=== PATIENT | female | born 1965 | race Caucasian/White ===

== ENCOUNTER 2021-02-16 07:16 | Day surgery (SDC) | payer OTHER, SELFPAY ==
[2021-01-26 13:31] VITALS: BMI 36.1
--- NOTE | 2021-02-15 13:25 | WPDANESEPPF ---
Anes - Initial Pre Proc Eval Procedure: Operation Date: 02/16/21 09:00 Proposed Procedures p Bilateral Breast Implant Exchange - Dillon Simons MD Date/Time: 02/15/21 13:25 Surgeon: Dillon Simons MD Pre Op Diagnosis: Right Breast Implant Rupture Patient Data Age: 55 Gender: F Height: 1.7 m Weight: 104.5 kg Allergies Allergy/AdvReac Type Severity Reaction Status Date / Time No Known Allergies Allergy Verified 02/16/21 07:28 Home Medications Medication Instructions Recorded Confirmed Type lisinopril 20 1 tablet PO DAILY 01/25/21 02/16/21 History mg-hydrochlorothiazide 25 mg tablet meloxicam 7.5 mg tablet 7.5 mg PO DAILY 01/25/21 02/16/21 History omeprazole 40 mg capsule,delayed 40 mg PO DAILY 01/25/21 02/16/21 History release carisoprodol 350 mg tablet 350 mg PO TID PRN #21 tablet 02/13/21 02/16/21 Rx docusate sodium 100 mg capsule 100 mg PO DAILY #14 cap 02/13/21 02/16/21 Rx ondansetron HCl 4 mg tablet 4 mg PO Q8H #21 tablet 02/13/21 02/16/21 Rx oxycodone-acetaminophen 5 mg-325 1 tablet PO Q6H PRN #15 tablet 02/13/21 02/16/21 Rx mg tablet Patient hx anesthesia problems: none Family hx anesthesia problems: none PMFSH Past Medical History Medical History (Updated 02/15/21 @ 13:25 by Sandoval Marc DO) Back problem GERD (gastroesophageal reflux disease) Hypertension Joint problem NARA (obstructive sleep apnea) no CPAP Family History Family History Father Parkinsons disease Mother Cerebrovascular accident Social History Social History Smoking status: Former smoker Alcohol intake: never Substance use type: does not use Living arrangements: with family Gender identity (if verbalized by the patient): Female Sexual Orientation (if Verbalized by the Patient): Straight or Heterosexual Spiritual care concerns: No Anes - Eval Final PreProcedure Day of Procedure 02/15/21 13:25 Patient weight: obese Heart: regular rate and rhythm Lungs: clear to auscultation and normal air movement Airway: Mallampati scale class 1 Neurological: alert and oriented Last oral intake: >/= 8 hours ASA classification: III Emergent: no Anesthetic plan: proceed Anesthesia type and monitoring: general LMA and standard monitoring Informed Consent: The patient's anesthetic plan and its attendant risks and benefits were discussed with the patient/family/POA. Questions were solicited and answers provided to the satisfaction of the patient/family/POA.
[2021-02-16 07:42] VITALS: BP 144/74; PULSE 77; RESP 16; TEMP 36.9; O2SAT 99
[2021-02-16] MEDS: LACTATED RINGERS 1,000 ML 30 ML IV CONT (07:50)
--- NOTE | 2021-02-16 08:23 | WPDHPUPDATE1 ---
History and Physical Update Update Date/Time: 02/16/21 08:23 History and Physical has been reviewed, including an updated exam of the patient. There are NO changes in the patient's condition. Risks, benefits, and alternatives have been discussed and questions answered. Patient agrees to proceed with procedure.
--- NOTE | 2021-02-16 08:35 | W.PM.PROC2 ---
Procedure Note - Detailed Date of Procedure 02/16/21 Pre-op Diagnosis Right Breast Implant Rupture Post-op Diagnosis same Procedure Performed Bilateral Breast Implant Exchange Surgeon Dillon Simons MD Anesthesia general Indications She is here today with ruptured right implant. She would like to exchange and increase volume. Findings Old Implants: Right ruptured. 400cc smooth Left intact (drained for removal). 280cc smooth. No worrisome features. She declines pathology. New Implants: Bilateral Natrelle Saline Implants Right - REF# [id number] SN [id number] filled to 470cc Left - REF# [id number] SN [id number] filled to 350cc Description of Procedure Preoperatively the risks, benefits, alternatives were discussed in extensive detail. I add her to the very realistic about the risks involved as well as expectations. We discussed aftercare. What to monitor for. Answered all of her questions to her satisfaction today and consent was obtained. Patient was taken to the operating room placed supine on the operating room table. Anesthesia provided by anesthesiology and prepped and draped in a standard sterile fashion. Tegaderm nipple Godoy were placed. Surgical time-out was taken. 1% lidocaine and 0.25% Marcaine with epinephrine was used to provide a field block. A 15 blade used to make an IMF incision (excising previous scar) and dissection was continued down until the capsule was identified. Implant was removed. I did have to do a capsulotomy to allow for the increased volume. Irrigated with 3 L of saline on TUR tubing. I then copiously irrigated with triple antibiotic Betadine solution. Wash my gloves. Saline implants were prepared on the back table. All air was removed. These were placed in using a fill kit were filled to the volumes as above. 2-0 Vicryl followed by 3-0 Monocryl running subcuticular 4-0 Monocryl and glue were used for final closure. Dressings were placed. She was woken taken to the PACU without difficulty. All instrument sponge counts were correct the end of the case. Estimated Blood Loss 10 Drains No Packing No Pathology none sent Complications No immediate complications Condition stable Disposition PACU
[2021-02-16] MEDS: LIDO 1%/EPINEPHRINE 1:100,000 20 ML VIAL 60 ML INFILTRATE (09:05)
[2021-02-16 09:55] VITALS: BP 132/63; PULSE 113; RESP 13; TEMP 36.2; O2SAT 100
[2021-02-16 10:10] VITALS: BP 140/86; PULSE 96; RESP 14; O2SAT 100
[2021-02-16] MEDS: fentaNYL CITRATE INJ (*CRX) 100 MCG/2 ML VIAL 25 MCG IV PUSH ×2 (10:15→10:28)
[2021-02-16] MEDS: ONDANSETRON INJ 4 MG/2 ML VIAL IV PUSH (10:24)
[2021-02-16 10:25] VITALS: BP 133/88; PULSE 85; RESP 18; O2SAT 100
[2021-02-16 10:35] VITALS: BP 135/85; PULSE 84; RESP 15; O2SAT 100
[2021-02-16] MEDS: oxyCODONE HCL (*CRX) 5 MG TAB IR PO (11:03)
[2021-02-16 11:06] VITALS: BP 136/73; PULSE 91; RESP 14; O2SAT 93
--- NOTE | 2021-02-16 11:28 | WPDANESPN ---
Anes - Prog Note Post-Op Date/Time: 02/16/21 11:28 Cardiovascular status: normal Respiratory status: normal Airway patency: baseline Mental status: baseline Post-Op hydration status: normal Vital Signs: Last Vital Signs Temp 36.2 C L 02/16/21 09:55 Pulse 91 02/16/21 11:06 Resp 14 02/16/21 11:06 BP 136/73 02/16/21 11:06 Pulse Ox 93 02/16/21 11:06 Pain Score (VAS): 2 Post-procedural complaints: none Patient Feedback: Patient satisfied with anesthetic care. Other Findings: Patient vital signs back to baseline. Patient denies nausea and vomiting. Patient's pain under control. Patient OK for discharge.
== END 2021-02-16 11:20 | disposition home or self-care (01) ==
PROVIDERS: PCP Family Medicine; Visit Provider Surgery Plastic and Reconstructive Surgery
PROC: (CPT 19342; principal; 2021-02-16 09:00)
DX: T85.49XA Other mechanical complication of breast prosthesis and implant, initial encounter (principal)
CPT/HCPCS: 19342